=== PATIENT | male | born 1975 | race Two or more races ===

== ENCOUNTER 2020-07-23 12:59 | Emergency (ER) | payer SELFPAY ==
[~2020-07-23] VITALS: Ht 167.6 cm; Wt 88.6 kg
[2020-07-23 13:37] VITALS: BP 149/74
[2020-07-23] MEDS ORDERED: PRED-220 PO (13:42)
[2020-07-23] MEDS ORDERED: FAMO20TA5 PO (13:42)
[2020-07-23] MEDS ORDERED: DIPH25CA58 PO (13:42)
--- NOTE | 2020-07-23 13:42 | PHYS DOC ---
General Adult EDM: Chief Complaint: SKIN PROBLEM HPI: HPI: Patient is a 45 year old male who presents the ED today complaining of poison katarina rash that began on Thursday after working in the yard. (ЕКАТЕРИНА MORFIN APRN) Review of Systems: Review of Systems: Constitutional: Denies fever or chills. [] Integument: Reports poison katarina rash Neurologic: Denies headache, focal weakness or sensory changes. [] Psychiatric: Denies depression or anxiety. [] (ЕКАТЕРИНА MORFIN APRN) Heart Score: Risk Factors: Risk Factors: DM, Current or recent (<one month) smoker, HTN, HLP, family history of CAD, obesity. Risk Scores: Score 0 - 3: 2.5% MACE over next 6 weeks - Discharge Home Score 4 - 6: 20.3% MACE over next 6 weeks - Admit for Clinical Observation Score 7 - 10: 72.7% MACE over next 6 weeks - Early Invasive Strategies (ЕКАТЕРИНА MORFIN APRN) Physical Exam: PE: Constitutional: Well developed, well nourished, no acute distress, non-toxic appearance. [] Skin: Warm, dry, mild to moderate linear erythematous rash on patient's bilateral upper and lower extremities consistent with poison katarina. Back: No tenderness, no CVA tenderness. [] Extremities: No tenderness, no cyanosis, no clubbing, ROM intact, no edema. [] Neurologic: Alert and oriented X 3, normal motor function, normal sensory function, no focal deficits noted. [] Psychologic: Affect normal, judgement normal, mood normal. [] (ЕКАТЕРИНА MORFIN APRN) EKG: EKG: [] (ЕКАТЕРИНА MORFIN APRN) Radiology/Procedures: Radiology/Procedures: [] (ЕКАТЕРИНА MORFIN APRN) Course & Med Decision Making: Course & Med Decision Making Pertinent Labs and Imaging studies reviewed. (See chart for details) Patient has presented with a rash. Discharged on prednisone, Benadryl and Pepcid. Follow-up with primary care doctor or switch inspector in 2 weeks as needed (ЕКАТЕРИНА MORFIN APRN) [place] Disclaimer: Dragon Disclaimer: This electronic medical record was generated, in whole or in part, using a voice recognition dictation system. (ЕКАТЕРИНА MORFIN APRN) Departure Departure Impression: Primary Impression: Contact dermatitis due to poison katarina Disposition: HOME, SELF-CARE Condition: STABLE Referrals: NO PCP (PCP) follow up in 2 weeks RAGHU AGUIAR MD Patient Instructions: Poison Katarina, [id number] Additional Instructions: You have poison katarina rash, use the prescribed medications as ordered. Follow-up with the provided doctor in 2 weeks or your own doctor. Scripts Diphenhydramine Hcl (BENADRYL) 25 Mg Capsule 1 CAP PO Q6-8HRS PRN for RASH for 30 Days, #30 CAP 0 Refills Prov: ЕКАТЕРИНА MORFIN APRN 07/23/20 Famotidine (FAMOTIDINE) 20 Mg Tablet 20 MG PO DAILY, #7 TAB Prov: ЕКАТЕРИНА MORFIN APRN 07/23/20 Prednisone (PREDNISONE ) 10 Mg Tablet 10 MG PO UD for PREDNISONE TAPER, #39 TAB 0 Refills Take 3 tablets by mouth twice a day for 3 days, then take 2 tablets by mouth twice a day for 3 days, then take 1 tablet by mouth twice a day for 3 days, then take 1 tablet by mouth daily x 3 days, then stop. Prov: ЕКАТЕРИНА MORFIN APRN 07/23/20 Justicifation of Admission Dx: Justifications for Admission: Justification of Admission Dx: N/A (ЕКАТЕРИНА MORFIN APRN) Attending Signature Attending Signature I have reviewed the PA/PRINTING MECHANIST's note and plan of care. I was available for consultation as needed during the patient's visit in the emergency department. I agree with the clinical impression, plan, and disposition. (NATE SOMERS DO) ЕКАТЕРИНА MORFIN APRN Jul 23, 2020 13:42 NATE SOMERS DO Jul 23, 2020 14:02
== END 2020-07-23 14:25 | disposition home or self-care (01) ==
LOC: ER 12:59
DX: L23.7 Allergic contact dermatitis due to plants, except food (principal)
CPT/HCPCS: 99283